=== PATIENT | female | born 1965 | race Asian ===

== ENCOUNTER 2022-04-15 15:15 | Outpatient (CLI) | payer BC | END 2022-04-15 15:16 | disposition home or self-care (01) | LOC: CSHMAMMO 15:15 | PROVIDERS: ATTEND Family Medicine | DX: Z12.31 Encounter for screening mammogram for malignant neoplasm of breast (principal) | CPT/HCPCS: 77063; 77067 ==

== ENCOUNTER 2023-04-18 15:33 | Outpatient (CLI) | payer BC | END 2023-04-18 15:34 | disposition home or self-care (01) | LOC: CSHMAMMO 15:33 | PROVIDERS: ATTEND Family Medicine | DX: Z12.31 Encounter for screening mammogram for malignant neoplasm of breast (principal) | CPT/HCPCS: 77063; 77067 ==

== ENCOUNTER 2024-04-26 09:35 | Outpatient (CLI) | payer BC | END 2024-04-26 09:36 | disposition home or self-care (01) | LOC: CSHMAMMO 09:35 | PROVIDERS: ATTEND Family Medicine | DX: Z12.31 Encounter for screening mammogram for malignant neoplasm of breast (principal) | CPT/HCPCS: 77063; 77067 ==

== ENCOUNTER 2024-11-05 07:59 | Outpatient (CLI) | payer OTHER | END 2024-11-05 08:00 | disposition home or self-care (01) | LOC: CSHCT 07:59 | PROVIDERS: ATTEND Specialist | DX: E78.00 Pure hypercholesterolemia, unspecified (principal); Z82.49 Family history of ischemic heart disease and other diseases of the circulatory system | CPT/HCPCS: 75571 ==

== ENCOUNTER 2025-09-12 08:08 | Outpatient (CLI) | payer OTHER | END 2025-09-12 08:09 | disposition home or self-care (01) | LOC: CSHMRI 08:08 | PROVIDERS: ATTEND Family Medicine | DX: S49.91XA Unspecified injury of right shoulder and upper arm, initial encounter (principal); S46.011A Strain of muscle(s) and tendon(s) of the rotator cuff of right shoulder, initial encounter; M94.8X1 Other specified disorders of cartilage, shoulder; M89.8X1 Other specified disorders of bone, shoulder; M25.411 Effusion, right shoulder ==